=== PATIENT | female | born 1945 | race Caucasian/White ===

== ENCOUNTER 2021-02-13 11:03 | Day surgery (SDC) | payer OTHER, BC ==
[2021-02-10 16:27] VITALS: BMI 19.1
[2021-02-13 11:28] VITALS: TEMP 98.2
[2021-02-13] MEDS ORDERED: PROPOFOL 20 ML ONE ×4 (11:57)
[2021-02-14 08:41] VITALS: BP 112/64; PULSE 62
== END 2021-02-13 13:00 | disposition home or self-care (01) ==
LOC: FASU-ENDO 11:03
PROVIDERS: ATTEND Internal Medicine Gastroenterology
PROC: 0DB78ZX Excision of Stomach, Pylorus, Via Natural or Artificial Opening Endoscopic, Diagnostic (ICD-10-PCS; 2021-02-13)
PROC: 0DB98ZX Excision of Duodenum, Via Natural or Artificial Opening Endoscopic, Diagnostic (ICD-10-PCS; principal; 2021-02-13 12:01)
DX: K29.50 Unspecified chronic gastritis without bleeding (principal); K31.89 Other diseases of stomach and duodenum
CPT/HCPCS: 88305-TC; 88342-TC